=== PATIENT | male | born 1935 | race Caucasian/White ===

== ENCOUNTER 2016-11-28 15:03 | Inpatient (IN) | payer MEDICARE, OTHER ==
[~2016-11-28] VITALS: Ht 180.3 cm; Wt 120.5 kg
[~2016-11-28 15:03] MED LIST: ALBU0.63 IH; ASPI-586 PO; DGX.25T PO; DOCU-34 PO; FURO20TA4 PO; GLIM4TAB PO; HYDR-707 PO; KCL10CCR PO; METF500T4 PO; MICO14CR6 TP; OMEP20CA12 PO; SIMV80TA3 PO; WARF5TAB PO
--- OUTSIDE RECORDS SUMMARY | 2016-11-28 15:07 | XMS REPORT | Summary of Care ---
Author Author Alex Glass M.D. 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 Edema (782.3, R60.9) Status: Active Leg pain (729.5, M79.606) Status: Active Asthma (493.90, J45.909) Status: Active Varicose veins with pain (454.8, I83.819) Status: Active Poor peripheral circulation (443.9, I73.9) Status: Active Varicose veins with swelling (454.8, I83.899) Status: Active Atrial fibrillation (427.31, I48.91) Status: Active Aortic stenosis (424.1, I35.0) Status: Active Benign essential hypertension (401.1, I10) Status: Active Dyspnea on exertion (786.09, R06.09) Status: Active 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 Refills: 0 Start 18-Oct-2015 Active Furosemide 20 MG Oral Tablet TAKE 1 TABLET DAILY. Refills: 0 Start 18-Oct-2015 Active Glimepiride 4 MG Oral Tablet TAKE 1 TABLET DAILY. Refills: 0 Start 18-Oct-2015 Active Omeprazole 40 MG Oral Capsule Delayed Release TAKE 1 CAPSULE DAILY. Refills: 0 Start 18-Oct-2015 Active Warfarin Sodium 4 MG Oral Tablet Refills: 0 Start 18-Oct-2015 Active Aspirin 81 MG TABS TAKE 1 TABLET DAILY. Refills: 0 Start 18-Oct-2015 Active Simvastatin 80 MG Oral Tablet TAKE 1 TABLET DAILY AT BEDTIME. Quantity: 30 Refills: 5 Alex Glass M.D. Start 22-Dec-2015 Active Allergies and Adverse Reactions Name Dates Details No Known Drug Allergies (Allergy) Status: Active Past Medical History Name Dates Details History of Moderate aortic stenosis (424.1, I35.0) Status: Resolved Procedures Procedure Dates Details History of Knee Surgery History of Scapulopexy History of Rotator Cuff Repair Cardiology Precert (within facility) Ordered: 26-Jun-2016 Cardiology Precert (within facility) Ordered: 26-Jun-2016 CP Echo Ordered: 30-Jun-2016 Immunization Name Dates Details Immunizations not documented Family History Name Dates Details Family history of cardiac disorder (V17.49, Z82.49) Status: Active Name Dates Details Family history of cardiac disorder (V17.49, Z82.49) Status: Active Name Dates Details Family history of cardiac disorder (V17.49, Z82.49) Status: Active Family history of cardiomyopathy (V17.49, Z82.49) Status: Active Family history of acute myocardial infarction (V17.3, Z82.49) Status: Active Social History Name Dates Details - Status: Name Dates Details Former smoker Vital Signs Date Test Result Details 13-Jul-2016 10:59 BP Systolic 118 mm[Hg] Status: Comments: Location: ; Position: BP Diastolic 64 mm[Hg] Status: Comments: Location: ; Position: Heart Rate 80 /min Status: Comments: Location: ; Height 71 in Status: Weight 263 lb Status: Body Mass Index Calculated 36.68 kg/m2 Status: Body Surface Area Calculated 2.37 m2 Status: 26-Jun-2016 10:00 BP Systolic 116 mm[Hg] Status: Comments: Location: ; Position: BP Diastolic 64 mm[Hg] Status: Comments: Location: ; Position: Heart Rate 84 /min Status: Comments: Location: ; Height 71 in Status: Weight 272 lb Status: Body Mass Index Calculated 37.94 kg/m2 Status: Body Surface Area Calculated 2.4 m2 Status: Results Date Description Value Details 03-Jul-2016 12:52 CP Echo Y Linked PDF Report Available for Review by Clicking ImageLink Button 13-Jul-2016 09:17 LIPID PROFILE 1184 Comments: Fastin hours CHOLESTEROL 103 mg/dL Range: <200 TRIGLYCERIDES 156 mg/dL Range: 30-200 HDL Cholesterol 30 mg/dL (Below low threshold) Range: >39 NON HDL CHOLESTEROL 73 CARDIAC RSK FACTOR 3.4 units (Below low threshold) Range: 4.4-5.0 LDL - CALCULATED 42 mg/dL Range: 0-130 09:17 LIVER PROFILE 1215 Comments: Fastin hours ALK PHOSPHATASE 85 U/L Range: 46-116 TOTAL BILIRUBIN 0.50 mg/dL Range: 0.20-1.00 DIRECT BILIRUBIN 0.10 mg/dL Range: 0.00-0.20 AST 22 U/L Range: 8-35 ALT 20 U/L Range: 16-63 Comments: Please note new reference ranges. Effective 02/04/2015.----- ALBUMIN 3.1 g/dL (Below low threshold) Range: 3.4-5.0 TOTAL PROTEIN 8.0 g/dL Range: 6.4-8.2 Plan of Care Name Dates Details Planned Observations Planned Goals not documented Instructions Name Dates Details Instructions not documented Encounters Appointment; Alex Glass M.D. Encounter Diagnosis: Problem not documented On 26-Jun-2016 10:00 Appointment; Alex Glass M.D. Encounter Diagnosis: Problem not documented On 22-Mar-2016 10:45 Appointment; Alex Glass M.D. Encounter Diagnosis: Problem not documented On 22-Dec-2015 11:45 Appointment; Alex Glass M.D. Encounter Diagnosis: Problem not documented On 11-Nov-2015 16:15 Appointment; Alex Glass M.D. Encounter Diagnosis: Problem not documented On 28-Oct-2015 16:00
[2016-11-28] MEDS ORDERED: SODIUM CHLORIDE FLUSH 10 ML SYR IV PRN (15:20)
[2016-11-28] MEDS ORDERED: SODIUM CHLORIDE FLUSH 3 ML SYR IV PRN (15:20)
[2016-11-28] MEDS ORDERED: WARF4TAB3 PO (15:37)
[2016-11-28 15:38] LABS: BASOPHILS % (AUTO) 1 % (0-2); EOSINOPHILS # (AUTO) 0.2 10^3uL; EOSINOPHILS % (AUTO) 2 % (0-4); LYMPHOCYTES # (AUTO) 1.4 X10^3; MEAN CORPUSCULAR HGB CONC 32.8 g/dL (31.0-37.0); MEAN CORPUSCULAR VOLUME 82 FL (80-100); MEAN PLATELET VOLUME 9.3 FL (6.0-9.5); MONOCYTES # (AUTO) 0.6 X10^3; MONOCYTES % (AUTO) 7 % (3-11); NEUTROPHILS # (AUTO) 6.2 X10^3; NEUTROPHILS % (AUTO) 74 % (51-67); PLATELET COUNT 155 10^3uL (150-450); WHITE BLOOD COUNT 8.41 10^3uL (4.0-11.0)
[2016-11-28 15:48] LABS: ALBUMIN 4.3 g/dL (3.4-5.0); ANION GAP 17.8 MEQ/L (3-15); CALCULATED IONIZED CALCIUM 3.7 mg/dL (3.8-4.6); TOTAL PROTEIN 8.4 g/dL (6.4-8.5)
[2016-11-28 16:09] LABS: MEAN CORPUSCULAR HEMOGLOBIN 26.8 PG (26.0-34.0)
--- NOTE | 2016-11-28 16:15 | Diagnostic Imaging Report ---
PROCEDURE: CT head without contrast. TECHNIQUE: Multiple contiguous axial images were obtained through the brain without the use of intravenous contrast. INDICATION: Left upper extremity weakness and disorientation. FINDINGS: Ventricles and sulci are within normal limits for patient's age. No hemorrhage is identified. There is no evidence of acute infarct. There is no abnormal mass effect or shift of midline structures. Calvarium is intact and the visualized paranasal sinuses are clear. IMPRESSION: No CT evidence of acute intracranial abnormality. Dictated by: Dictated on workstation # [id number]
--- NOTE | 2016-11-28 16:28 | NUR ---
rounds made, pt denies needs.
--- NOTE | 2016-11-28 18:00 | NUR ---
Patient walked in room and hallway with assist x2 and wheelchair following. Patient is complaining of lightheadedness and vertigo. Unable to walk back to room, Wheelchair utilized.
--- NOTE | 2016-11-28 18:51 | NUR ---
Report given to Keerthi MURRAY
[2016-11-28] MEDS ORDERED: CALCIUM CARBONATE CHEWABLE 300 MG (TUMS) TABLET PO PRN (20:05)
[2016-11-28] MEDS ORDERED: ONDANSETRON 4 MG (ZOFRAN) ORAL DISSOLVE TAB PO PRN (20:05)
[2016-11-28] MEDS ORDERED: MAG HYDROX/AL HYDROX/SIMETH 200-200-20/5 ML (MAG-AL PLUS) 30 ML UDC PO PRN (20:05)
[2016-11-28] MEDS ORDERED: POLYETHYLENE GLYCOL 17 GM (MIRALAX) PACKET PO PRN (20:05)
[2016-11-28] MEDS ORDERED: ACETAMINOPHEN 325 MG TAB (TYLENOL) PO PRN (20:05)
[2016-11-28] MEDS ORDERED: PROMETHAZINE HCL INJ 12.5 MG in SODIUM CHLORIDE 25 ML IV PRN (20:05)
[2016-11-28] MEDS ORDERED: MAGNESIUM HYDROXIDE 80MG/ML (MILK OF MAGNESIA) 30 ML UDC PO PRN (20:05)
[2016-11-28] MEDS ORDERED: DOCUSATE SODIUM 100 MG (COLACE) CAP PO PRN (20:05)
--- NOTE | 2016-11-28 20:40 | NUR ---
Patient admitted to room 302 at this time. Alert and Oriented, is having some double vision and has some difficulties finding water cup on tray in front of him. No reports of pain or dyspnea. See Admission Assessment part 1 & 2. Will continue to monitor.
[2016-11-28 20:41] LABS: MAGNESIUM* 2.2 mg/dL (1.6-2.3)
[2016-11-28 21:09] VITALS: BP 97/64
[2016-11-28] MEDS ORDERED: DEXTROSE 50% 25 GM/50 ML SYRINGE IV PRN (21:25)
[2016-11-28] MEDS ORDERED: DEXTROSE ORAL GEL (GLUTOSE 40%) 15 GM TUBE PO PRN (21:25)
[2016-11-28] MEDS ORDERED: GLUCAGON EMERGENCY 1 MG/KIT IM PRN (21:25)
--- NOTE | 2016-11-28 21:40 | History and Physical (E) ---
History & Physical PCP: Олег Rivera MD CC: Altered mental status. HPI Sachin Vasquez is a 81 year old male admitted form ED 11/28 where he presented with report of sudden change in vision after he got back into his truck. He could not see were things were. In ED, he complained of light-headedness and vertigo. Afebrile with HR 86, RR 22, BP 114/78. SpO2 92% RA. CBC fairly unremarkable. INR 2.1. Chemistry suggestive of mild dehydration. Digoxin 1.20. Urine wasn't checked. CT head was negative for acute changes. He was given no therapies in ED. He was then admitted for observation. On arrival to unit, awake, alert, interactive, mildly disoriented and he as a bit of trouble relating history clearly. Says he is here because of "feeling like I am walking on an air mattress." Has trouble with balance and with foot positioning at times. Says in ER today he had double vision. He has trouble recalling whether this was lateral or vertical. Since arrival to hospital, this has improved for the most part. Neuro exam is as noted below. Speech is not slurred but he has a very mild bit of word-finding trouble. Symptom onset was today when leaving the post office this [place]. 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 One of the employees there took him home. He then called a friend who brought him to hospital. No nausea or vomiting. No vertigo but acknowledges he has trouble keeping his balance over the las several weeks. Has some right neck pain he attributes to pulled muscle. No fever or chills. Denies new respiratory complaints. Denies chest pain or palpitations. PMH * Diabetes mellitus type 2 * atrial fibrillation * history of DVT * Charcot joints in ankles * diabetic foot ulcers * gout * HTN * No history of heart attack. * No history of stroke. PSH * Cholecystectomy * knee replacement * rotator cuff tear repair * shoulder replacement ALLERGIES: Please see list at end of report. HOME MEDICATIONS: Please see list at end of report. FH Brother with CHF. SH Lives independently. Does not have anyone he is close with. 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 Smokes cigars. Occasional alcohol. No children. ROS CONSTITUTION: Denies fever or chills. HEENT: Per HPI, exam. CV: No chest pain, palpitations. PULM: No cough, shortness of breath, difficulty breathing. GI: No upset stomach, nausea, vomiting, constipation, or diarrhea. No blood in stool. : No dysuria. No blood in urine. MS: Per HPI, exam. NEURO: Per HPI, exam. INTEG: Per HPI, exam. ENDO: No heat or cold intolerance. No polydipsia or polyuria. HEME/LYMPH: No easy bruising or bleeding. No swollen glands. PSYCH: No change in mood or behavior. OBJECTIVE Vital Signs Date Time Temp Pulse Resp B/P Pulse Ox O2 Delivery O2 Flow Rate FiO2 11/28/16 17:39 80 82 94 11/28/16 15:18 97.2 22 114/78 92 Room Air GEN: Awake, alert, oriented, NAD HEENT: EOMI, clear sclerae, pupils equal and reactive. Visual field deficit as noted in neuro exam. Mild facial plethora. Rosacea of nose. CV: RRR S1 S2 normal with III/ systolic murmur at RSB. LUNGS: CTA B with mildly diminished bases. ABD: Soft, obese. NT/ND with normal bowel sounds. EXTR: 3+ BLE edema with chronic venous stasis changes. INTEG: Venous stasis dermatitis BLE. BLE edema. MS: Charcot ankles/feet bilaterally. NEURO: Has trouble tracking vision to left visual field but VOR is intact bilaterally. Apparently complete left visual field deficit. Cranial nerves otherwise intact. Hands mildly tremulous bilaterally. Event Technician strength difficult to check on right due to IV site but otherwise intact bilaterally. Hip flexion intact bilaterally. Gait not assessed. NIH stroke scale score 3 for visual field cut, mild sensory deficit. Laboratory Results-14 Days 11/28/16 15:10: Alanine Aminotransferase (ALT/SGPT) 28L, Albumin 4.3, Albumin/Globulin Ratio 1.048L, Alkaline Phosphatase 113, Anion Gap 17.8H, Aspartate Amino Transf (AST/ SGOT) 40H, BUN/Creatinine Ratio 18, Basophils # (Auto) 0.0, Basophils (%) (Auto ) 1, Blood Urea Nitrogen 23H, Calcium Level 9.3, Calcium/Ionized Calcium Ratio 3.7L, Calculated Osmolality 282, Carbon Dioxide Level 27, Chloride Level 103, Creatinine 1.27, Eosinophils # (Auto) 0.2, Eosinophils (%) (Auto) 2, Estimat Glomerular Filtration Rate 66.2, Estimated GFR (Non- 54.7, Glucose Level 105, Hematocrit 51.50H, Hemoglobin 16.9, Lymphocytes # (Auto) 1.4 , Lymphocytes (%) (Auto) 16L, Mean Corpuscular Hemoglobin 26.8, Mean Corpuscular Hemoglobin Concent 32.8, Mean Corpuscular Volume 82, Mean Platelet Volume 9.3, Monocytes # (Auto) 0.6, Monocytes (%) (Auto) 7, Neutrophils # (Auto ) 6.2, Neutrophils (%) (Auto) 74H, Platelet Count 155, Potassium Level 4.7, Red Blood Count 6.30H, Red Cell Distribution Width 17.4H, Sodium Level 144, Total Bilirubin 0.8, Total Protein 8.4, White Blood Count 8.41 11/28/16 18:37: Digoxin Level 1.20, Prothromb Time International Ratio 2.1H, Prothrombin Time 23.4H MICRO: None IMAGING 11/28/16 CT HEAD WO PROCEDURE: CT head without contrast. TECHNIQUE: Multiple contiguous axial images were obtained through the brain without the use of intravenous contrast. INDICATION: Left upper extremity weakness and disorientation. FINDINGS: Ventricles and sulci are within normal limits for patient's age. No hemorrhage is identified. There is no evidence of acute infarct. There is no abnormal mass effect or shift of midline structures. Calvarium is intact and the visualized paranasal sinuses are clear. IMPRESSION: No CT evidence of acute intracranial abnormality. REFERENCE 06/24/2015 ECHO: Summary: 1. Mild LVH. 2. LVEF 55-60%. 3. Impaired relaxation pattern of LV diastolic filling. 4. Normal right ventricular size, wall thickness, and systolic function. 5. No pericardial effusion. 6. Mild to moderate aortic stenosis. 7. Calculated aortic valve area of 1.55 cm2 with mean gradient 20 mmHg. 8. Mild tricuspid valve regurgitation. ASSESSMENT Sachin Vasquez is a 81 year old male admitted from ED 11/28 where he presented from home with new onset diplopia and left visual field deficit, onset in AM . He likely had stroke. Outside range for TPA and note he is already on warfarin for atrial fibrillation. He has several chronic problems including charcot joints, atrial fibrillation, diabetes mellitus type II and obesity. PLAN * Stroke, Left Hemianopsia: CT head negative for acute changes. MRI and carotid venous duplex pending. Already on anticoagulation and aspirin at home. PT/OT. Would benefit from ophthalmology referral pending workup. * Disequilibrium: Likely due to stroke. PT/OT eval and treat. * Deconditioning: PT/OT eval and treat. * Dehydration: Mild. IVF. Daily weight, I&O. * F/E/N: Diabetic diet. IVF. Peripheral IV. * Prophylaxis: Warfarin * Code Status: Full * Dispo: Inpatient. Expect 3 day stay and will need skilled care, most likely. CHRONIC ISSUES * BLE edema: JOEY yee. * Atrial fibrillation: Warfarin, digoxin. * Diabetes Mellitus Type II: A1C 7.1 09/2016. Hold oral agents. Sliding scale. * GERD: Pantoprazole (sub for omeprazole) * Charcot joints: PT. * HLD: Simvastatin * Constipation: Bowel regimen * Tobacco abuse: Nicotine patch. 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 Allergies/Home Medications Allergies: Coded Allergies: No Known Allergies (Verified Allergy, Unknown, 01/02/16) Reported Home Medications Scheduled Aspirin (Aspir 81) 81 MG PO DAILY (Reported) Digoxin (Lanoxin) 0.25 MG PO DAILY (Reported) Docusate Sodium (Colace) 100 MG PO DAILY (Reported) Furosemide (Furosemide) 20 MG PO DAILY (Reported) Glimepiride (Glimepiride) 4 MG PO DAILY Omeprazole (Omeprazole) 40 MG PO DAILY (Reported) Simvastatin (Simvastatin) 80 MG PO DAILY (Reported) Warfarin (Warfarin) 4 MG PO DAILY (Reported) Discontinued Medications Warfarin Sodium (Coumadin) 5 MG PO DAILY@1700 (Reported) Discontinued Reason: Dose changed Copies to: End of Report . XU EAGLE MD Nov 28, 2016 20:09
[2016-11-29 00:16] VITALS: BP 99/63
[2016-11-29 03:43] LABS: BILIRUBIN,URINE Negative (Negative); COLOR,URINE Yellow; GLUCOSE, URINE (UA) Negative (Negative); LEUKOCYTE ESTERASE ,URINE 1+ (Negative); PH,URINE 5.5 (5.0 - 8.0); UROBILINOGEN,URINE 0.2 mg/dL (0.2-1.0)
--- NOTE | 2016-11-29 04:34 | NUR ---
Patient up to commode at this time to attempt to have bowel movement. States that he's not seeing double right now, and that he felt more stable when he got up to commode. No needs at this time. Will continue to monitor.
[2016-11-29] MEDS ORDERED: HALOPERIDOL 5 MG/ML (HALDOL) 1 ML AMP IM ONE (05:15)
[2016-11-29 05:38] LABS: CLARITY,URINE Slightly Cloudy
[2016-11-29 05:40] LABS: URINE CENTRIFUGED VOLUME 12 mL
--- NOTE | 2016-11-29 06:21 | NUR ---
Patient rests in bed throughout night. IV running without difficulties in right hand. Reports no double vision at this time. No needs at this time.
[2016-11-29 06:25] LABS: BASOPHILS % (AUTO) 1 % (0-2); EOSINOPHILS # (AUTO) 0.2 10^3uL; EOSINOPHILS % (AUTO) 3 % (0-4); LYMPHOCYTES # (AUTO) 1.1 X10^3; MEAN CORPUSCULAR HGB CONC 32.5 g/dL (31.0-37.0); MEAN CORPUSCULAR VOLUME 83 FL (80-100); MEAN PLATELET VOLUME 9.5 FL (6.0-9.5); MONOCYTES # (AUTO) 0.5 X10^3; MONOCYTES % (AUTO) 7 % (3-11); NEUTROPHILS # (AUTO) 5.2 X10^3; NEUTROPHILS % (AUTO) 74 % (51-67); PLATELET COUNT 134 10^3uL (150-450); WHITE BLOOD COUNT 6.98 10^3uL (4.0-11.0)
[2016-11-29 06:45] LABS: ALBUMIN 3.3 g/dL (3.4-5.0); ANION GAP 12.3 MEQ/L (3-15); PHOSPHORUS 3.5 mg/dL (2.4-4.9)
[2016-11-29] MEDS: INSULIN LISPRO 1 UNIT/0.01 ML (HUMALOG) DOSE SC SCH ×4 (06:56→21:00)
[2016-11-29 07:01] LABS: RBC,URINE None Seen /HPF
--- NOTE | 2016-11-29 07:35 | NUR ---
Patient awake in bed upon shift assessment. Alert and oriented X3. Denies pain, dizziness, double vision, or other distress. Reports his vision is "back to normal". HR RRR. Lung sounds CTAB. IVF infusing without difficulty. Updated on plan of care for shift. Call light in reach.
[2016-11-29 07:45] VITALS: BP 97/64
[2016-11-29] MEDS: WARFARIN MONITORING XX SCH (08:10)
[2016-11-29] MEDS: PANTOPRAZOLE 40 MG (PROTONIX) TAB PO SCH (08:12)
[2016-11-29] MEDS: DIGOXIN 0.25 MG (LANOXIN) TAB PO SCH (08:12)
[2016-11-29] MEDS: NICOTINE 21 MG (NICODERM) PATCH TD SCH ×2 (08:12→08:14)
[2016-11-29] MEDS ORDERED: GLMP4T PO (08:40)
[2016-11-29] MEDS ORDERED: METO-270 PO (08:40)
[2016-11-29] MEDS ORDERED: LOVA20TA2 PO (08:40)
[2016-11-29 08:45] VITALS: BP 97/64
--- NOTE | 2016-11-29 09:50 | Progress Note-A/P (E) ---
Progress Note Subjective: Patient would like to be up walking. He feels his vision is improving, however he is struggling to read the clock in the room. He is requesting his home stool softener, cream for his thighs that are chronically itching. Discussed care plan. Questions answered. Objective: Current Medications Acetaminophen 650 mg Q6H PRN PO Calcium Carbonate 300 mg Q8H PRN PO Al Hydrox/Mg Hydrox/Simethicone 30 ml Q6H PRN PO Ondansetron 4 mg Q6HR PRN PO Promethazine Q6H PRN IV Magnesium Hydroxide 30 ml DAILY PRN PO Polyethylene Glycol 17 gm DAILY PRN PO Docusate 100 mg BID PRN PO Nicotine 21 mg DAILY TD Digoxin 0.25 mg DAILY PO Warfarin 4 mg DAILY@1700 PO Pantoprazole 40 mg DAILY PO Simvastatin 40 mg HS PO Dextrose 15 gm Q15M PRN PO Dextrose PRN IV Glucagon 1 mg PRN IM Insulin Human Lispro QIDACHS SC Vital Signs Date Time Temp Pulse Resp B/P Pulse Ox O2 Delivery O2 Flow Rate FiO2 11/29/16 08:45 96.9 64 18 92 Room air 11/29/16 07:45 97/64 I & O Past 24 hrs 11/29/16 07:00 Intake Total 1500 ml Output Total 800 ml Balance 700 ml Intake Oral 1500 ml Output Urine Total 800 ml # Bowel Movements 0 Physical Exam General--Awake and alert. No distress. HEENT--Normocephalic. MMM in oral cavity. Lungs--Clear to auscultation bilaterally. Nonlabored respirations. Heart--RRR. II/ CASSANDRA heard over left sternal border. Abdomen--Normal bowel sounds. Soft. Nondistended. Nontender. Extremities--No edema. Past 24 hour Lab Results 11/28/16 15:10 11/29/16 05:20 Laboratory Results Past 24 Hrs 11/28/16 15:10: Alanine Aminotransferase (ALT/SGPT) 28, Albumin 4.3, Albumin/Globulin Ratio 1.048, Alkaline Phosphatase 113, Anion Gap 17.8, Aspartate Amino Transf (AST/ SGOT) 40, BUN/Creatinine Ratio 18, Basophils # (Auto) 0.0, Basophils (%) (Auto) 1, Blood Urea Nitrogen 23, C-Reactive Protein 1.40, Calcium Level 9.3, Calcium/ Ionized Calcium Ratio 3.7, Calculated Osmolality 282, Carbon Dioxide Level 27, Chloride Level 103, Creatinine 1.27, Eosinophils # (Auto) 0.2, Eosinophils (%) ( Auto) 2, Estimat Glomerular Filtration Rate 66.2, Estimated GFR (Non- 54.7, Glucose Level 105, Hematocrit 51.50, Hemoglobin 16.9, Lymphocytes # (Auto) 1.4, Lymphocytes (%) (Auto) 16, Magnesium Level 2.2, Mean Corpuscular Hemoglobin 26.8, Mean Corpuscular Hemoglobin Concent 32.8, Mean Corpuscular Volume 82, Mean Platelet Volume 9.3, Monocytes # (Auto) 0.6, Monocytes (%) (Auto) 7, Neutrophils # (Auto) 6.2, Neutrophils (%) (Auto) 74, Platelet Count 155, Potassium Level 4.7, Red Blood Count 6.30, Red Cell Distribution Width 17.4, Sodium Level 144, Thyroid Stimulating Hormone (TSH) 2.52, Total Bilirubin 0.8, Total Protein 8.4, Troponin I 0.035, White Blood Count 8.41 11/28/16 18:37: Digoxin Level 1.20, Prothromb Time International Ratio 2.1, Prothrombin Time 23.4 11/29/16 02:40: Urine Bacteria 1+, Urine Bilirubin Negative, Urine Clarity Slightly cloudy, Urine Collection Type Random voided, Urine Color Yellow, Urine Glucose (UA) Negative, Urine Ketones Negative, Urine Leukocyte Esterase 1+, Urine Nitrite Positive, Urine Protein Negative, Urine RBC None seen, Urine RBC (Auto) Trace- intact, Urine Specific [place] 1.025, Urine Squamous Epithelial Cells None, Urine Urobilinogen 0.2, Urine WBC 20-30, Urine pH 5.5, Volume Urine Centrifuged 12 ml 11/29/16 05:20: Albumin 3.3, Anion Gap 12.3, Basophils # (Auto) 0.0, Basophils (%) (Auto) 1, Blood Urea Nitrogen 21, Calcium Level 8.5, Carbon Dioxide Level 28, Chloride Level 105, Creatinine 1.13, Eosinophils # (Auto) 0.2, Eosinophils (%) (Auto) 3, Estimat Glomerular Filtration Rate 75.7, Estimated GFR (Non- 62.6, Glucose Level 137, Hematocrit 45.80, Hemoglobin 14.9, Lymphocytes # (Auto ) 1.1, Lymphocytes (%) (Auto) 16, Mean Corpuscular Hemoglobin 27.0, Mean Corpuscular Hemoglobin Concent 32.5, Mean Corpuscular Volume 83, Mean Platelet Volume 9.5, Monocytes # (Auto) 0.5, Monocytes (%) (Auto) 7, Neutrophils # (Auto ) 5.2, Neutrophils (%) (Auto) 74, Platelet Count 134, Potassium Level 4.2, Red Blood Count 5.52, Red Cell Distribution Width 16.5, Sodium Level 141, White Blood Count 6.98, Phosphorus Level 3.5 Imaging Results 11.28.16 CT Head IMPRESSION: No CT evidence of acute intracranial abnormality. 11.29.16 Carotid u/s IMPRESSION: Left greater than right mixed carotid plaques do not form hemodynamically significant degrees of stenosis. There is antegrade directional left vertebral flow; however, the right vertebral shows no identifiable intraluminal flow, either too slow to be detected or occluded. Assessment/Plan Stroke, Left Hemianopsia CT head negative for acute changes. MRI pending. Carotid u/s report above. Already on anticoagulation and aspirin at home. PT/OT/ST. Would benefit from ophthalmology referral pending workup. Disequilibrium Likely due to stroke. PT/OT eval and treat. Deconditioning PT/OT eval and treat. Dehydration Mild. IVF. Daily weight, I&O. BLE edema JOEY hose. Atrial fibrillation Warfarin and digoxin per home dose. INR 2.1. Diabetes Mellitus Type II A1C 7.1 09/2016. Holding oral agents. Sliding scale. GERD Pantoprazole (sub for omeprazole), creatinine normal. Charcot joints PT. HLD Continue home simvastatin. Constipation Continue home bowel regimen. Tobacco abuse Nicotine patch. 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 FEN Diabetic diet. IVF. Peripheral IV. DVT Prophylaxis Warfarin, with a therapeutic INR. Code Status Full Dispo Inpatient. MRI tomorrow. SUSANNAH LIN MD Nov 29, 2016 09:50
--- NOTE | 2016-11-29 10:39 | OT Therapy Evaluation (E) ---
POC Plan of Care Problems Identified: Activity Tolerance, ADLs, Balance, Body Awareness, Lt UE Strength, Rt UE Strength, Safety Awareness, Vision Impairment Plan: Evaluation-OT, ADL/Self Care Management, Therapy Exercises, Therapy Activities, Pt/Family/Staff Education Frequency of OT: Five times weekly Duration of OT: Other (5 days ) Therapy to Include: ADL training, Balance with ADLs, Neuro re-education, Pt/ family education, Therapeutic activities, UE coord. training, UE strengthing Discharge Recommendations: TCU/Skilled NH Pt would benefit from skilled occupational therapy services to improve independence with self care tasks for return to prior level of function. Additionally to provide visual retraining and strategies for left visual field deficit. Recommended Equipment at DC: Rails on toilet Pt. Aware of Dx and Prognosis: Yes Pt. Aware of Risk & Benefit: Yes Goals: Discussed with patient Short Term Goals STG Time Frame: 3 Days Will Dress Upper Extremity: With Setup/SBA Will Dress Lower Extremity: With Setup/SBA Will do Toileting: With Setup/SBA Will Perform Funct Transfer: With Setup/SBA STG #1 Pt will participate in 15 min of ther ex with 4 or less rest breaks. STG #2 Pt will demonstrate ability to complete grooming task in standing at sink and locate all items by self with SBA. STG #3 Pt will demonstrate ability to complete wide head turns during self care activities with minimal prompting to increase safety during ADLs. Half-Way Goals LTG Time Frame: 5 Days Will Dress Upper Extremity: Independently Will Dress Lower Extremity: Independently Will Bathe Self: With Setup/SBA LTG # 1 Pt will demonstrate ability to visually scan environment and locate 8/10 items provided by therapist with independence. Inital Evaluation/General Service Date/Time 11/29/16, 10:25 Primary Diagnosis: (1) Vertigo ICD Code: R42 Treatment Diagnosis: (1) Weakness ICD Code: R53.1 (2) Vision loss ICD Code: H54.7 Onset Date: 11/28/16 Start of Care Date: Nov 29, 2016 Precaution/Isolation: Standard Precautions Fall Level: High Risk 51 or greater Resuscitation Status: Full Code Reason for Referral: Evaluation and Treat History Comment PMH DM II, Atrial fibrillation, history of DVT, diabetes, foot ulcers, gout Pain Level: 0 Pain Locattion/Comments Pt reports no pain, but has an itch between legs due to a rash. Oxygen Needed: Room air Rehabilitation Potential: Good Potential Based On Patient's willingness to participate in therapies. Living Status Prior to Admit: Alone (Lives in a one level home ) Pt reports no difficulty self care tasks. Pt reports he does not clean, but does cooking on stove and microwave. 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 Entry Into Home: [place] with Railing Steps Into Home: 1 Shower and Tub Type: Walk in with curtain Assist Devices: Tub Bench Toilet Type: Raised Comment Has both a FWW and a SPC and only uses when he needs them. Has been "furniture cruising" lately. No falls within the home. Lost balance outside of the home. 2 falls outside the home. Current Function Assessment Mental Status Patient Orientation: Person Mental Status: Alert Cognition Attention: Impaired Memory: Impaired Safety/Judgement: Impaired Visual/Perceptual Skills Visual Precep Skills Training: Depth preception, L neglect, Limited FOV, Scanning cues Glassess: Yes (Lined bifocals) Hearing: Impaired (Pt hard of hearing) Comment Upon assessment pt demonstrates a left visual field cut. Pt unable to see items on left side, but is aware he is unable to see. When holding up 3 fingers, pt reports only seeing two. Limited peripheral vision on left during useful field of view assessment. Pt demonstrates good oculomotor control during H test and ocular pursuits. Demonstrates difficulty with depth perception on left side. Hand Dominance Hand Dominance: Right ROM/Strength Range of Motion : ROM: WNL Strength Comment BUE 4-/5 Neurological Coordination: Moderately impaired Balance: Sits w/o support Endurance Activity Endurance: Fair Bed Mobility/Transfers Sit to Stand: Minimum assist Chair Transfer: Minimum assist Dressing Dressing: Minimum assist Clothing Retrieval: Minimum assist, Verbal cues Bathing Shower/Bench Transfer Ability: Minimum assist, Verbal cues Toileting Toilet Hygiene: CGA Toilet Transfer Ability: Minimum assist Additional Assessment/Comments Pt demonstrates decreased strength, decreased safety awareness, decreased independence with self care tasks including bathing, dressing toileting and grooming and limited vision. Pt presents as a moderate complexity due to the performance deficits listed above resulting in participation restrictions and requiring minimal to moderate physical and verbal tasks during the evaluation for safety awareness secondary to vision concerns. CPT/G Codes Time In: 10:22 Time Out: 11:01 Total Minutes: 39 (25 eval, 14 ADL) Codes/Minutes: 81136 ADL EA (Sitting at EOB, pt participated in lower body dressing of donning and doffing socks. Pt able to bring opposite leg to knee and don socks. With increased time, pt able to complete donning of bilateral socks. Completed sit to stand transfer with minimal assistance. Safety cueing to slow down with FWW and keep walker close to body for safety. In bathroom, pt able to manage underwear and sit on toilet with CGA. Completed transfer with minimal assistance and able to manage underwear with CGA. In sitting, educated pt on use of wide head turns to compensate for visual field loss on left side. ) YOUSUF UMAÑA OT Nov 29, 2016 10:39
[2016-11-29] MEDS: HYDROCORTISONE 1% TOP SCH ×2 (12:51→17:08)
[2016-11-29] MEDS: DOCUSATE SODIUM 100 MG (COLACE) CAP PO SCH (12:51)
--- NOTE | 2016-11-29 12:56 | Diagnostic Imaging Report ---
PROCEDURE: US Carotid Duplex Bilateral. TECHNIQUE: Multiple real-time grayscale images were obtained over the carotid arteries in various projections bilaterally. Additional duplex Doppler and color Doppler images were also obtained. INDICATION: TIAs. FINDINGS: The bilateral common and internal carotid arterial peak systolic velocities and ICA/CCA percent ratios are normal. Carotid color Doppler blood flow was laminar. No turbulence is identified. There is left greater than right carotid bulb and bifurcation mixed soft and hard plaque which does not form hemodynamically significant degrees of stenosis. The left vertebral artery shows normal antegrade directional flow; however, the right vertebral shows no appreciable intraluminal color Doppler flow. IMPRESSION: Left greater than right mixed carotid plaques do not form hemodynamically significant degrees of stenosis. There is antegrade directional left vertebral flow; however, the right vertebral shows no identifiable intraluminal flow, either too slow to be detected or occluded. Dictated by: Dictated on workstation # [id number]
[2016-11-29 14:16] VITALS: BP 97/64
--- NOTE | 2016-11-29 14:59 | Physical Therapy Evaluation(E) ---
Plan of Care STG: Plan-Treatment Functional: Trans. Safe w/ AD STG Time Frame: 2 Days LTG Time Frame: 5 Days Goals Discussed/Agreed: Yes Plan: Endurance, Gait & Transfer Training, Neuro Re-Education, Progressive Ambulation, Transfer Training, Therapy Excercise Discharge Recommendations: Home Independently (Possible home health services and recommendation for patient to use AD for ambulation upon return honme. ) Aware of Dx and Prognosis: Yes Aware of Risk & Benefit: Yes To be Seen: Daily Sunday-Sunday Initial Evaluation Service Date/Time 11/29/16, 14:56 Primary Diagnosis: (1) Vertigo ICD Code: R42 (2) Altered mental status ICD Code: R41.82 (3) Vision loss ICD Code: H54.7 Treatment Diagnosis: (1) Vertigo ICD Code: R42 (2) Altered mental status ICD Code: R41.82 Onset Date: 11/28/2016 Start of Care Date: Nov 29, 2016 Resuscitation Status: Full Code Precaution/Isolation: Standard Precautions Fall Level: High Risk 51 or greater Initial Assessment Reason for Rehab: Increase Mobility, Increase Strength, Increase Balance, Increase Transfers Medical History: Other (Charcot joints in feet, Afib, hx of DVT, HTN, gout, right RCR, shoulder replacement, knee replacement. ) Prior Level of Function The patient lives alone independently and was still driving. He notes ambulating without AD. Patient did have home health services at some point to assist him with bathing. Rehabilitation Potential: Good Rehab Potential Based on Patient's independent prior level of function. Assistive Device: FWW Distance Walked in Feet 100 feet with FWW increased lateral trunk sway Gait Description: Wide Based Gait, Uneven Weight Shift ROM/Strength Hip Mobility: Right Hip Strength: 4 Left Hip Strength: 4 Knee Flexion Mobility: Right Knee Flexion Strength: 4 Left Knee Flexion Strength: 4 Knee Extension Mobility: Right Knee Extension Strength: 4 Left Knee Extension Strength: 4 Ankle Mobility: Right Ankle Strength: 2- Left Ankle Strength: 2- Assessment/Goals Initial Transfer Assessment Sit-Supine: Supervision or setup Sitting Edge of Bed: Contact Guard Assist Supine-Sit: Supervision or setup Sit-Stand from Bed: Minimal Assistance Stand-Sit: Contact Guard Assist Ambulation: Contact Guard Assist Distance Walked in Feet 100 feet with FWW fatigued. Mild imbalance in bathroom secondary to decreased space to move. Comment Patient unsteady when standing without UE support. Peripheral vision 80% impaired on left side in comparison to right. Transfer Short Term Goals Rolling: Modified [place] Sit-Supine: Modified [place] Sitting Edge of Bed: Modified [place] Supine-Sit: Modified [place] Sit-Stand from bed: Supervision or setup Stand-Sit: Supervision or setup Ambulation: Contact Guard Assist Distance to Walk in Feet 150 feet x 2 with FWW. Transfer Appliance Counselor Goals Rolling: Modified [place] Sit-Supine: Modified [place] Sitting Edge of Bed: Modified [place] Supine-Sit: Modified [place] Sit-Stand from bed: Modified [place] Stand-Sit: Modified [place] Distance to Walk in Feet 25 feet without FWW, 300 feet with FWW. Treatments Ambulation Toilet transfer with min assistance, upon standing, patient has increased trunk sway but denied any dizziness/lightheadendness. Unable to see door frame on left side secondary to visual impairment, but was able to maintain straight walking path. Coding Time In: 1404 Time Out: 1434 Total Minutes: 30 Code & Unit: 18964 Eval< 30 min, 72912 Ther Activity RADHA HACKETT PT Nov 29, 2016 14:59
[2016-11-29 15:44] VITALS: BP 92/72
[2016-11-29] MEDS: warFARin 4 MG (COUMADIN) TAB PO SCH (17:07)
--- NOTE | 2016-11-29 17:20 | OT Daily Note Inpatient (E) ---
OT Daily Treatment Service Date/Time 11/29/16, 17:07 Primary Diagnosis: (1) Vertigo ICD Code: R42 (2) Altered mental status ICD Code: R41.82 (3) Vision loss ICD Code: H54.7 Treatment Diagnosis: Onset Date: 11/28/16 Start of Care Date: Nov 29, 2016 Precaution/Isolation: Standard Precautions Fall Level: High Risk 51 or greater Resuscitation Status: Full Code I just cant see my finger when its is off to the left Pain Level: 0 Oxygen Needed: Room air Current Function Assessment Mental Status Mental Status: Alert Cognition Memory: Impaired Safety/Judgement: Impaired Visual/Perceptual Skills Visual Precep Skills Training: L neglect, Scanning cues Glassess: Yes (Lined bifocals) Comment Pt engaged in ther activity of making vertical lines through horizontal lines placed on the left side of the body. Pt missed 12 lines in the lower left quadrat. Following number maze took 4:17 minutes with mod v/c for scanning. Matching pattern activity with matching objects placed on the left side of body. Pt only need 30% cueing. Functional ambulation 300 [address] with hallway with FWW CGA with patient scanning for objects on the far left required Max v/c Bed Mobility/Transfers Bed Mobility: SBA Supine from Sit: SBA Sit to Stand: CGA Chair Transfer: CGA Sitting Balance: WFL Toileting Toilet Hygiene: CGA Clothing Tariq-Pants Down : Clothing Management-Pants Down: SBA Clothing Tariq-Pants Up : Clothing Management-Pants Up: SBA Toilet Transfer Ability: CGA Education/Assessment Barriers to Learning: Visual impairment Treatment Tolerance: Joseph trmnt w/o complaints Rehabilitation Potential: Good pt experiencing left neglect but will turn head on cue to find objects. POC Plan of Care Problems Identified: Safety Awareness, Vision Impairment Short Term Goals Will do Toileting: CGA Will Perform Funct Transfer: CGA CPT/G Codes Time In: 1508 Time Out: 1551 Total Minutes: 39 Codes/Minutes: 21446 Therp Activity (23), 67384 ADL EA (16) Agueda Minaya Nov 29, 2016 17:20
--- NOTE | 2016-11-29 18:17 | NUR ---
Patient reports some peripheral vision deficit on left side this afternoon. OT works with patient on this. Steady gate noted throughout day shift. Denies pain or distress. IVF SL after bag late AM. Call light in reach.
[2016-11-29] MEDS: SIMvastatin 40 MG (ZOCOR) TAB PO SCH (20:22)
[2016-11-29 23:41] VITALS: BP 111/66
[2016-11-30 00:15] VITALS: BP 111/66
--- NOTE | 2016-11-30 06:12 | NUR ---
Pt rested well this shift. Skin warm, dry, intact. Resprs nonlabored, even on RA. Pt continues to endorse L sided peripheral vision loss. Pt uses urinal independently in room, will call for assistance. SL intact. Call light within reach. Denies needs.
[2016-11-30 06:39] LABS: ALBUMIN 3.4 g/dL (3.4-5.0); ANION GAP 12.8 MEQ/L (3-15); MAGNESIUM* 2.2 mg/dL (1.6-2.3); PHOSPHORUS 3.4 mg/dL (2.4-4.9)
[2016-11-30 06:45] LABS: BASOPHILS % (AUTO) 0 % (0-2); EOSINOPHILS # (AUTO) 0.2 10^3uL; EOSINOPHILS % (AUTO) 3 % (0-4); LYMPHOCYTES # (AUTO) 1.5 X10^3; MEAN CORPUSCULAR HGB CONC 31.8 g/dL (31.0-37.0); MEAN CORPUSCULAR VOLUME 84 FL (80-100); MEAN PLATELET VOLUME 9.8 FL (6.0-9.5); MONOCYTES # (AUTO) 0.5 X10^3; MONOCYTES % (AUTO) 7 % (3-11); NEUTROPHILS % (AUTO) 70 % (51-67); PLATELET COUNT 130 10^3uL (150-450)
[2016-11-30 07:12] LABS: MEAN CORPUSCULAR HEMOGLOBIN 26.5 PG (26.0-34.0)
[2016-11-30] MEDS: INSULIN LISPRO 1 UNIT/0.01 ML (HUMALOG) DOSE SC SCH ×4 (07:13→21:11)
[2016-11-30 08:34] VITALS: BP 109/79
[2016-11-30] MEDS: NICOTINE 21 MG (NICODERM) PATCH TD SCH (08:42)
[2016-11-30] MEDS: WARFARIN MONITORING XX SCH (08:43)
[2016-11-30 08:47] VITALS: BP 109/79
[2016-11-30] MEDS: HYDROCORTISONE 1% TOP SCH ×3 (09:00→16:16)
--- NOTE | 2016-11-30 09:00 | NUR ---
Patient to MRI via wheelchair.
--- NOTE | 2016-11-30 09:24 | Progress Note-A/P (E) ---
Progress Note Subjective: Patient is up to chair. He is sleeping but awakens easily. Discussed current findings and MRI. Patient has discussed skilled care with hemodialysis patient care specialist and with his neighbors, he understands that he lives at home alone and this can be concerning. He reports he is not sure what to do. Objective: Current Medications Acetaminophen 650 mg Q6H PRN PO Calcium Carbonate 300 mg Q8H PRN PO Al Hydrox/Mg Hydrox/Simethicone 30 ml Q6H PRN PO Ondansetron 4 mg Q6HR PRN PO Promethazine Q6H PRN IV Magnesium Hydroxide 30 ml DAILY PRN PO Polyethylene Glycol 17 gm DAILY PRN PO Docusate 100 mg BID PRN PO Nicotine 21 mg DAILY TD Digoxin 0.25 mg DAILY PO Warfarin 4 mg DAILY@1700 PO Pantoprazole 40 mg DAILY PO Simvastatin 40 mg HS PO Dextrose 15 gm Q15M PRN PO Dextrose PRN IV Glucagon 1 mg PRN IM Insulin Human Lispro QIDACHS SC Vital Signs Date Time Temp Pulse Resp B/P Pulse Ox O2 Delivery O2 Flow Rate FiO2 11/30/16 08:47 97.3 78 22 93 Room air 11/30/16 08:34 109/79 I & O Past 24 hrs 11/30/16 07:00 Intake Total 3374 ml Output Total 4415 ml Balance -1041 ml Intake Oral 2974 ml IV Total 400 ml Output Urine Total 4415 ml # Bowel Movements 1 Physical Exam General--Awake and alert. No distress. HEENT--Normocephalic. MMM in oral cavity. Lungs--End inspiratory wheeze noted at left lung base. Nonlabored respirations. Heart--RRR. II/ CASSANDRA heard over left sternal border. Abdomen--Normal bowel sounds. Soft. Nondistended. Nontender. Extremities--No edema. Charcot deformity of left foot. Past 24 hour Lab Results 11/30/16 05:10 Laboratory Results Past 24 Hrs 11/30/16 05:10: Albumin 3.4, Anion Gap 12.8, Basophils # (Auto) 0.0, Basophils (%) (Auto) 0, Blood Urea Nitrogen 20, Calcium Level 8.8, Carbon Dioxide Level 31, Chloride Level 103, Creatinine 1.38, Eosinophils # (Auto) 0.2, Eosinophils (%) (Auto) 3, Estimat Glomerular Filtration Rate 60.1, Estimated GFR (Non- 49.7, Glucose Level 121, Hematocrit 45.90, Hemoglobin 14.6, Lymphocytes # (Auto ) 1.5, Lymphocytes (%) (Auto) 20, Magnesium Level 2.2, Mean Corpuscular Hemoglobin 26.5, Mean Corpuscular Hemoglobin Concent 31.8, Mean Corpuscular Volume 84, Mean Platelet Volume 9.8, Monocytes # (Auto) 0.5, Monocytes (%) (Auto ) 7, Neutrophils # (Auto) 5.0, Neutrophils (%) (Auto) 70, Phosphorus Level 3.4, Platelet Count 130, Potassium Level 4.9, Prothromb Time International Ratio 2.0 , Prothrombin Time 21.8, Red Blood Count 5.50, Red Cell Distribution Width 16.2 , Sodium Level 141, White Blood Count 7.[address] Head IMPRESSION: No CT evidence of acute intracranial abnormality. 11.29.16 Carotid u/s IMPRESSION: Left greater than right mixed carotid plaques do not form hemodynamically significant degrees of stenosis. There is antegrade directional left vertebral flow; however, the right vertebral shows no identifiable intraluminal flow, either too slow to be detected or occluded. 11.30.16 MRI Brain IMPRESSION: 1. Small subacute infarct in the right occipital lobe. 2. Generalized parenchymal volume loss and chronic small vessel ischemic change is appropriate for age. 3. No high-grade narrowing, aneurysm or dissection involving the major intracranial arteries. Assessment/Plan Stroke, Left Hemianopsia CT head negative for acute changes. MRI pending. Carotid u/s report above. Already on anticoagulation and aspirin at home. Continue PT/OT/ST. Would benefit from ophthalmology referral pending workup. Disequilibrium Likely due to stroke. PT/OT eval and treat. Deconditioning PT/OT eval and treat. Patient would benefit from skilled, however he is resistant. Will have patient evaluated by PT and OT for home safety. Dehydration Mild. IVF. Daily weight, I&O. BLE edema JOEY hose. Atrial fibrillation Warfarin and digoxin per home dose. INR 2.0. Diabetes Mellitus Type II A1C 7.1 09/2016. Holding oral agents. Sliding scale. GERD Pantoprazole (sub for omeprazole), creatinine normal. Charcot joints PT. HLD Continue home simvastatin. Constipation Continue home bowel regimen. Tobacco abuse Nicotine patch. 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 FEN Diabetic diet. IVF. Peripheral IV. Electrolytes normal. DVT Prophylaxis Warfarin, with a therapeutic INR. Code Status Full Dispo Inpatient. MRI today. PT and OT to evaluate patient for home safety and look to d/c to home or to SNF tomorrow. SUSANNAH LIN MD Nov 30, 2016 09:24
[2016-11-30] MEDS: PANTOPRAZOLE 40 MG (PROTONIX) TAB PO SCH (10:29)
[2016-11-30] MEDS: DIGOXIN 0.25 MG (LANOXIN) TAB PO SCH (10:29)
[2016-11-30] MEDS: DOCUSATE SODIUM 100 MG (COLACE) CAP PO SCH (10:29)
--- NOTE | 2016-11-30 10:55 | Diagnostic Imaging Report ---
EXAM: MRI BRAIN W W/O MRA HEAD W/O INDICATION: Left hemianopsia. COMPARISON: CT head without contrast 11/28/2016. FINDINGS: MRI: There is a small area of restricted water diffusion, associated T2 hyperintensity and peripheral enhancement in the right occipital lobe compatible with subacute infarct. Scattered nonspecific supratentorial white matter T2 hyperintensities, presumed leukoaraiosis. Generalized cerebral and cerebellar parenchymal volume loss is appropriate for age. No other abnormal intracranial signal, enhancement, restricted water diffusion or hemosiderin deposition. Normal morphology including the major midline structures, cerebellar pontine angle and posterior fossa. Normal intracranial flow voids. No hydrocephalus or extra-axial fluid collections. The orbits and paranasal sinuses are unremarkable. MRA: No high-grade narrowing, aneurysm or dissection involving the intracranial internal carotids, anterior, middle or posterior cerebral arteries. No definite anterior communicating artery. Diminutive bilateral posterior communicating arteries. Codominant vertebral arteries. IMPRESSION: 1. Small subacute infarct in the right occipital lobe. 2. Generalized parenchymal volume loss and chronic small vessel ischemic change is appropriate for age. 3. No high-grade narrowing, aneurysm or dissection involving the major intracranial arteries. Dictated by: Dictated on workstation # [id number]
--- NOTE | 2016-11-30 11:32 | OT Daily Note Inpatient (E) ---
OT Daily Treatment Service Date/Time 11/30/16, 11:21 Primary Diagnosis: (1) Vertigo ICD Code: R42 (2) Altered mental status ICD Code: R41.82 (3) Vision loss ICD Code: H54.7 Treatment Diagnosis: (1) Weakness ICD Code: R53.1 (2) Vision loss ICD Code: H54.7 Onset Date: 11/28/16 Start of Care Date: Nov 29, 2016 Precaution/Isolation: Standard Precautions Fall Level: High Risk 51 or greater Resuscitation Status: Full Code Current Activity: Agrees to participate, In bed I can see better today, my vision in coming in and my hand does not have tremors anymore and i can eat cereal. Pain Level: 0 Oxygen Needed: Room air Current Function Assessment Mental Status Mental Status: Alert Cognition Attention: Impaired Memory: Impaired Safety/Judgement: Impaired Visual/Perceptual Skills Visual Precep Skills Training: Depth preception, L neglect, Limited FOV, Scanning cues Glassess: Yes (Lined bifocals) Hearing: Impaired (Pt hard of hearing) Hand Dominance Hand Dominance: Right Skin and Positioning Comment Pt stated he picked a pimple on right thigh/buttock and had some minor bleeding. Bed Mobility/Transfers Bed Mobility: SBA Supine from Sit: SBA Sit to Stand: SBA (v/c to push off) Chair Transfer: CGA Sitting Balance: WFL ADLs Hand : Feeding Types of Assist Tools: Opening lids/pkg Comment Pt required assistance to open milk carton but was able to open cereal container with extra time. Pt was able to eat all food on plate and did not miss anything on the left side, but when milk was moved to the left side of body he was unable to find it without v/c. Dressing Dressing Lower Body w Assist: Fasten pants Comment Min assist for L foot for threading brief due to incontinence. Toileting Toilet Hygiene: Maximum Assist (Pt states he uses a bottom liat at home and not able to reach without it.) Clothing Tariq-Pants Down : Clothing Management-Pants Down: SBA Clothing Tariq-Pants Up : Clothing Management-Pants Up: SBA Toilet Transfer Ability: Setup/SBA, CGA Education/Assessment Education Provided: Home management/safety (Pt education for FAST symptoms of stroke and when to call 911.) Teaching Method: Practice/repetition, Verbal Readiness to Learn: Good Barriers to Learning: Visual impairment Treatment Tolerance: Joseph trmnt w/o complaints Rehabilitation Potential: Good Pt coopertive but impulsive at times. Pt left for MRI after tx.. MD came in during tx and was alerted to L neglect and decreased tremors in R hand. POC Plan of Care Problems Identified: Activity Tolerance, ADLs, Balance, Body Awareness, Lt UE Strength, Rt UE Strength, Safety Awareness, Vision Impairment Plan: Evaluation-OT, ADL/Self Care Management, Therapy Exercises, Therapy Activities, Pt/Family/Staff Education Frequency of OT: Five times weekly Duration of OT: Other (5 days ) Therapy to Include: ADL training, Balance with ADLs, Neuro re-education, Pt/ family education, Therapeutic activities, UE coord. training, UE strengthing Discharge Recommendations: TCU/Skilled NH Recommended Equipment at DC: Rails on toilet Pt. Aware of Dx and Prognosis: Yes Pt. Aware of Risk & Benefit: Yes Goals: Discussed with patient Short Term Goals STG Time Frame: 3 Days Will Dress Upper Extremity: With Setup/SBA Will Dress Lower Extremity: With Setup/SBA (min a) Will do Toileting: With Setup/SBA (CGA/SBA) Will Perform Funct Transfer: With Setup/SBA (CGA/SBA) STG #1 Pt will participate in 15 min of ther ex with 4 or less rest breaks. STG #2 Pt will demonstrate ability to complete grooming task in standing at sink and locate all items by self with SBA. STG #3 Pt will demonstrate ability to complete wide head turns during self care activities with minimal prompting to increase safety during ADLs. Penitentiary Goals LTG Time Frame: 5 Days Will Dress Upper Extremity: Independently Will Dress Lower Extremity: Independently Will Bathe Self: With Setup/SBA LTG # 1 Pt will demonstrate ability to visually scan environment and locate 8/10 items provided by therapist with independence. CPT/G Codes Time In: 820 Time Out: 852 Total Minutes: 32 Codes/Minutes: [id number] ADL Agueda Myers Nov 30, 2016 11:32
[2016-11-30] MEDS ORDERED: [UNRECOGNIZED DRUG - CODE] TP (12:16)
[2016-11-30] MEDS ORDERED: MULT-954 PO (12:16)
[2016-11-30] MEDS ORDERED: HYDR28CR18 TP (12:16)
--- NOTE | 2016-11-30 13:33 | NUR ---
Visited with Pt. regarding skilled care. Pt. doesn't feel like he needs skilled care and he could go home. SW encouraged Pt. to discuss this further with Dr. Bonner. Pt. did state if he has to go to skilled care he would prefer to go to [facility]. VALORIE sent information to [facility] to review for acceptance.
[2016-11-30] MEDS: NYSTATIN POWDER 100,000 UNITS 15 GM BTL TOP SCH ×2 (13:42→18:33)
--- NOTE | 2016-11-30 14:12 | PT Daily Note Inpatient (E) ---
PT Daily Treatment Service Date/Time 11/30/16, 14:06 Medical Diagnosis: (1) Vertigo ICD Code: R42 (2) Altered mental status ICD Code: R41.82 (3) Vision loss ICD Code: H54.7 Physical Therapy: (1) Vertigo ICD Code: R42 (2) Altered mental status ICD Code: R41.82 Precaution/Isolation: Standard Precautions Resuscitation Status: Full Code Fall Level: High Risk 51 or greater Subjective pt pleasant and cheerful, states "both of my big toes are sore, very sore today ", agrees to therapy Pain Level: 3 Pain Location/Comment c/o right sided neck pain Oxygen Delivery: Room air Treatments Sit, Stand, Supine: Long Sitting (& sitting) Extremity: Both Lower Extremity Assistance: AROM Repetition: 1 x 10 Exercise: AP, Heel Slides, Hip Abduction, SLR, LAQ, Hip Flexion, External Rotation, Internal Rotation Transfers Sit-Stand from bed: Supervision or setup Stand-Sit: Supervision or setup Gait Ambulation: Supervision or setup Distance Walked: 180' pt c/o BLE big toes painful today with gait and at rest Weight Bearing Status: Full Assistive Device: FWW Gait Assist: Supervision Required Gait Description: Wide Based Gait, Decreased Farida, Slow, Flexed Trunk Education/Plan Assessment Tolerates exercises and gait well, decreased strength, fatigued easily Safety Awareness: Impaired Response to Treatment: Improving Plan Cont POC Patient will be seen: Daily Sunday-Sunday Discharge Recommendations: TCU/Skilled NH Coding Time In: 1340 Time Out: 1405 Total Minutes: 25 Codes/Units: 27787 Exercise Therp Victoria m ELISA [employer]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
[2016-11-30 14:40] VITALS: BP 109/79
--- NOTE | 2016-11-30 15:07 | NUR ---
MED REC COMPLETE--current med list obtained from external med history application, patient interview, and list from patient's PCP (Dr. Rivera). Completed by Douglas Gonzalez, Pharm. D. Candidate 2017.
[2016-11-30 15:44] VITALS: BP 119/68
--- NOTE | 2016-11-30 16:07 | PT Daily Note Inpatient (E) ---
PT Daily Treatment Service Date/Time 11/30/16, 16:00 Medical Diagnosis: (1) Vertigo ICD Code: R42 (2) Altered mental status ICD Code: R41.82 (3) Vision loss ICD Code: H54.7 Physical Therapy: (1) Vertigo ICD Code: R42 (2) Altered mental status ICD Code: R41.82 Precaution/Isolation: Standard Precautions Resuscitation Status: Full Code Fall Level: High Risk 51 or greater Subjective Patient has worked with [employer] this date. He is willing to participate in further therapy services for PT to reevaluate ambulation, and balance. Patient notes pain in his feet with ambulation over 100 feet. He denies having left sided visual deficits this date. PT was able to get the following information from patient this date: several steps to enter his home, he does have FWW and several canes but has not used them, and no grab bars in bathroom, he pulls himself up using door frame. Oxygen Delivery: Room air Transfers Sit-Stand from bed: Contact Guard Assist Stand-Sit: Minimal Assistance Gait Ambulation: Contact Guard Assist Distance Walked: Approximately 110 feet with FWW Patient unable to complete head turns vertically or horizontally without verbal cues and visual cues, he demonstrates moderate path deviation with head turns. Impaired balance noted with turning and increased time required to complete turns. Tinetti Balance assessment also completed with patient scoring a 8/16 on standing balance and 8/12 on gait portion total of 16/28 putting him in high fall risk category. Assistive Device: FWW Gait Assist: Min Assist/Contact Guard Education/Plan Education PT educated the patient that PT feels he would benefit from additional therapy services to work on balance, strength, and activity tolerance. He states he doesn't want to go to a senior living facility. Assessment Patient would benefit from additional therapy services secondary to his impaired gait, balance, and safety awareness. Plan Continue to see the patient working on gait, balance, and strengthening. Patient will be seen: Daily Sunday-Sunday Discharge Recommendations: TCU/Skilled NH Coding Time In: 1540 Time Out: 1600 Total Minutes: 20 Codes/Units: 54271 Exercise Therp 15 m RADHA HACKETT PT Nov 30, 2016 16:07
[2016-11-30] MEDS: warFARin 4 MG (COUMADIN) TAB PO SCH (16:21)
--- NOTE | 2016-11-30 18:50 | NUR ---
Patient remains oriented throughout day shift. Continues to have left sided peripheral vision loss. Denies pain or distress. 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 Pleasant and cooperative with cares. Uses call light appropriately for help. Call light in reach.
--- NOTE | 2016-11-30 20:00 | NUR ---
Patient resting in recliner chair with legs elevated. States is feeling much better. Wanting to gp home, yet is aware that he needs to be in the skilled nursing for a few weeks to get stronger. Denies any double vision, or blurred vision. States that he can also see better on his left side/peripheral. No needs at this time. Denies pain.
[2016-11-30] MEDS: SIMvastatin 40 MG (ZOCOR) TAB PO SCH (21:04)
[2016-12-01] VITALS: BP 124/72
[2016-12-01 00:34] VITALS: BP 87/58
--- NOTE | 2016-12-01 03:00 | NUR ---
Rests at long intervals tonight. Respirations even and non-labored.
--- NOTE | 2016-12-01 06:30 | NUR ---
Rested well tonight. No discomforts voiced. Denies lightheadedness or dizziness. No needs at this time.
[2016-12-01] MEDS: INSULIN LISPRO 1 UNIT/0.01 ML (HUMALOG) DOSE SC SCH ×2 (06:52→11:30)
[2016-12-01 08:17] VITALS: BP 112/66
[2016-12-01] MEDS: PANTOPRAZOLE 40 MG (PROTONIX) TAB PO SCH (08:32)
[2016-12-01] MEDS: DIGOXIN 0.25 MG (LANOXIN) TAB PO SCH (08:32)
[2016-12-01] MEDS: HYDROCORTISONE 1% TOP SCH ×2 (08:33→12:03)
[2016-12-01] MEDS: NYSTATIN POWDER 100,000 UNITS 15 GM BTL TOP SCH ×2 (08:33→12:03)
[2016-12-01] MEDS: NICOTINE 21 MG (NICODERM) PATCH TD SCH (08:33)
[2016-12-01] MEDS: DOCUSATE SODIUM 100 MG (COLACE) CAP PO SCH (08:33)
[2016-12-01] MEDS: WARFARIN MONITORING XX SCH (08:34)
[2016-12-01 08:36] VITALS: BP 112/66
[2016-12-01] MEDS ORDERED: NICOTINE PATCH REMOVAL TOP SCH (08:59)
[2016-12-01] MEDS ORDERED: FUROSEMIDE 20 MG (LASIX) TAB PO SCH (09:00)
[2016-12-01] MEDS ORDERED: GLIMEPIRIDE 4 MG (AMARYL) TAB PO SCH (09:00)
--- NOTE | 2016-12-01 09:53 | PT Daily Note Inpatient (E) ---
PT Daily Treatment Service Date/Time 12/01/16, 09:46 Medical Diagnosis: (1) Vertigo ICD Code: R42 (2) Altered mental status ICD Code: R41.82 (3) Vision loss ICD Code: H54.7 Physical Therapy: (1) Vertigo ICD Code: R42 (2) Altered mental status ICD Code: R41.82 Precaution/Isolation: Standard Precautions Resuscitation Status: Full Code Fall Level: High Risk 51 or greater Subjective pt pleasant and cooperative, agrees to PT Oxygen Delivery: Room air Treatments Sit, Stand, Supine: Long Sitting (& sitting) Extremity: Both Lower Extremity Assistance: AROM Repetition: 1 x 15 Exercise: AP, Heel Slides, Hip Abduction, SLR, LAQ, Hip Flexion, External Rotation, Internal Rotation Transfers Sit-Stand from bed: Supervision or setup (cues to put hands on arm rests to push off) Stand-Sit: Supervision or setup (cues to reach back for arm rests when sitting) Gait Ambulation: Supervision or setup Distance Walked: 200' x1 standing rest break due to fatigue and bilateral feet pain Weight Bearing Status: Full Assistive Device: FWW Gait Assist: Supervision Required Gait Description: Wide Based Gait, Decreased Farida, Slow, Flexed Trunk Education/Plan Assessment Pt endurance improving, would benefit from further skilled therapy before going home Safety Awareness: Impaired (cont to need cues for safe transfers) Response to Treatment: Improving Plan Cont POC Patient will be seen: Daily Sunday-Sunday Discharge Recommendations: TCU/Skilled NH Coding Time In: 913 Time Out: 943 Total Minutes: 30 Codes/Units: 58432 Exercise Therp ELISA Dewitt PTA Dec 01, 2016 09:53
--- NOTE | 2016-12-01 10:13 | NUR ---
Visited with Pt. again about going to skilled care. Pt. reports he feels like he could go home but understands its the recommendation for him to go to skilled care. SW informed him he has been accepted at [facility]. Pt. is willing to go to [facility]. Explained he will be discharged today and SW will arrange transportation for him.
--- NOTE | 2016-12-01 11:14 | Progress Note-A/P (E) ---
Progress Note Subjective: Patient is up to chair. Friends at bedside. Discussion regarding discharge plans and carotid findings. Patient thinks he may have been to a vascular surgeon before, but does not remember what their name was and he was not happy with that experience. Will allow PCP to arrange vascular consult. Questions answered. Objective: Current Medications Acetaminophen 650 mg Q6H PRN PO Calcium Carbonate 300 mg Q8H PRN PO Al Hydrox/Mg Hydrox/Simethicone 30 ml Q6H PRN PO Ondansetron 4 mg Q6HR PRN PO Promethazine Q6H PRN IV Magnesium Hydroxide 30 ml DAILY PRN PO Polyethylene Glycol 17 gm DAILY PRN PO Docusate 100 mg BID PRN PO Nicotine 21 mg DAILY TD Digoxin 0.25 mg DAILY PO Warfarin 4 mg DAILY@1700 PO Pantoprazole 40 mg DAILY PO Simvastatin 40 mg HS PO Dextrose 15 gm Q15M PRN PO Dextrose PRN IV Glucagon 1 mg PRN IM Insulin Human Lispro QIDACHS SC Vital Signs Date Time Temp Pulse Resp B/P Pulse Ox O2 Delivery O2 Flow Rate FiO2 12/01/16 08:36 98.0 81 20 92 Room air 12/01/16 08:17 112/66 I & O Past 24 hrs 12/01/16 07:00 Intake Total 2536 ml Output Total 5040 ml Balance -2504 ml Intake Oral 2536 ml Output Urine Total 5040 ml Physical Exam General--Awake and alert. No distress. HEENT--Normocephalic. MMM in oral cavity. Lungs--Clear bilaterally. Nonlabored respirations. Heart--RRR. II/ CASSANDRA heard over left sternal border. Abdomen--Normal bowel sounds. Soft. Nondistended. Nontender. Extremities--No edema. Charcot deformity of left foot. Past 24 hour Lab Results Microbiology 11/29/16 Urine Culture - Preliminary, Resulted Imaging Results 11.28.16 CT Head IMPRESSION: No CT evidence of acute intracranial abnormality. 11.29.16 Carotid u/s IMPRESSION: Left greater than right mixed carotid plaques do not form hemodynamically significant degrees of stenosis. There is antegrade directional left vertebral flow; however, the right vertebral shows no identifiable intraluminal flow, either too slow to be detected or occluded. 11.30.16 MRI Brain IMPRESSION: 1. Small subacute infarct in the right occipital lobe. 2. Generalized parenchymal volume loss and chronic small vessel ischemic change is appropriate for age. 3. No high-grade narrowing, aneurysm or dissection involving the major intracranial arteries. Assessment/Plan Stroke, Left Hemianopsia Vision is improving. CT head negative for acute changes. MRI reports subacute occipital infarct. Carotid u/s report shows questionable occlusion. Will need vascular follow up to evaluate. Already on anticoagulation and aspirin at home. Continue PT/OT/ST. Ophthalmology eval being scheduled. Disequilibrium Likely due to stroke. PT/OT with skilled. Deconditioning PT/OT. Patient discharging to skilled. Dehydration Mild. IVF. Daily weight, I&O. BLE edema JOEY hose. Atrial fibrillation Warfarin and digoxin per home dose. INR 2.0. Diabetes Mellitus Type II A1C 7.1 09/2016. Holding oral agents. Sliding scale. GERD Pantoprazole (sub for omeprazole), creatinine normal. Charcot joints PT. HLD Continued home simvastatin. Constipation Continued home bowel regimen. Tobacco abuse Nicotine patch. Counseled cessation. FEN Diabetic diet. IVF. Peripheral IV. Electrolytes normal. DVT Prophylaxis Warfarin, with a therapeutic INR. Code Status Full Dispo Inpatient. MRI per above. Discharging to skilled today. SUSANNAH LIN MD Dec 01, 2016 11:14
[2016-12-01] MEDS ORDERED: ATOR10TA PO (11:18)
--- NOTE | 2016-12-01 11:30 | Discharge Summary (E) ---
Discharge Summary (A) Admit Date/Time Nov 29, 2016 at 14:29 Discharge Date/Time Dec 01, 2016 Admitting Provider Karan Chinchilla MD Primary Care Provider Олег Rivera MD Attending Provider Karan Chinchilla MD Consulting Provider Admission Diagnosis Stroke, Left Hemianopsia Disequilibrium Deconditioning History and Present Illness Sachin Vasquez is a 81 year old male admitted form ED 11/28 where he presented with report of sudden change in vision after he got back into his truck. He could not see were things were. In ED, he complained of light-headedness and vertigo. Afebrile with HR 86, RR 22, BP 114/78. SpO2 92% RA. CBC fairly unremarkable. INR 2.1. Chemistry suggestive of mild dehydration. Digoxin 1.20. Urine wasn't checked. CT head was negative for acute changes. He was given no therapies in ED. He was then admitted for observation. On arrival to unit, awake, alert, interactive, mildly disoriented and he as a bit of trouble relating history clearly. Says he is here because of "feeling like I am walking on an air mattress." Has trouble with balance and with foot positioning at times. Says in ER today he had double vision. He has trouble recalling whether this was lateral or vertical. Since arrival to hospital, this has improved for the most part. Neuro exam is as noted below. Speech is not slurred but he has a very mild bit of word-finding trouble. Symptom onset was today when leaving the post office this [place]. 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 One of the employees there took him home. He then called a friend who brought him to hospital. No nausea or vomiting. No vertigo but acknowledges he has trouble keeping his balance over the las several weeks. Has some right neck pain he attributes to pulled muscle. No fever or chills. Denies new respiratory complaints. Denies chest pain or palpitations. Hospital Course and Treatment Stroke, Left Hemianopsia Vision is improving. CT head negative for acute changes. MRI reports subacute occipital infarct. Carotid u/s report shows questionable occlusion. Will need vascular follow up to evaluate. Already on anticoagulation and aspirin at home. Continue PT/OT/ST. Ophthalmology eval being scheduled. Disequilibrium Likely due to stroke. PT/OT with skilled. Deconditioning PT/OT. Patient discharging to skilled. Dehydration Mild. IVF. Daily weight, I&O. BLE edema JOEY hose. Atrial fibrillation Warfarin and digoxin per home dose. INR 2.0. Diabetes Mellitus Type II A1C 7.1 09/2016. Holding oral agents. Sliding scale. GERD Pantoprazole (sub for omeprazole), creatinine normal. Charcot joints PT. HLD Continued home simvastatin. Constipation Continued home bowel regimen. Tobacco abuse Nicotine patch. Counseled cessation. FEN Diabetic diet. IVF. Peripheral IV. Electrolytes normal. DVT Prophylaxis Warfarin, with a therapeutic INR. Code Status Full Dispo Inpatient. MRI per above. Discharging to skilled today. Discharge Physicial Exam Physical Exam General--Awake and alert. No distress. HEENT--Normocephalic. MMM in oral cavity. Lungs--Clear bilaterally. Nonlabored respirations. Heart--RRR. II/ CASSANDRA heard over left sternal border. Abdomen--Normal bowel sounds. Soft. Nondistended. Nontender. Extremities--No edema. Charcot deformity of left foot. Radiology/Laboratory Data .02.09 CT Head IMPRESSION: No CT evidence of acute intracranial abnormality. .03.12 Carotid u/s IMPRESSION: Left greater than right mixed carotid plaques do not form hemodynamically significant degrees of stenosis. There is antegrade directional left vertebral flow; however, the right vertebral shows no identifiable intraluminal flow, either too slow to be detected or occluded. 11.30.16 MRI Brain IMPRESSION: 1. Small subacute infarct in the right occipital lobe. 2. Generalized parenchymal volume loss and chronic small vessel ischemic change is appropriate for age. 3. No high-grade narrowing, aneurysm or dissection involving the major intracranial arteries. Laboratory Results Past 10Days 11/28/16 15:10: Alanine Aminotransferase (ALT/SGPT) 28L, Albumin 4.3, Albumin/Globulin Ratio 1.048L, Alkaline Phosphatase 113, Anion Gap 17.8H, Aspartate Amino Transf (AST/ SGOT) 40H, BUN/Creatinine Ratio 18, Basophils # (Auto) 0.0, Basophils (%) (Auto ) 1, Blood Urea Nitrogen 23H, C-Reactive Protein 1.40H, Calcium Level 9.3, Calcium/Ionized Calcium Ratio 3.7L, Calculated Osmolality 282, Carbon Dioxide Level 27, Chloride Level 103, Creatinine 1.27, Eosinophils # (Auto) 0.2, Eosinophils (%) (Auto) 2, Estimat Glomerular Filtration Rate 66.2, Estimated GFR (Non- 54.7, Glucose Level 105, Hematocrit 51.50H, Hemoglobin 16.9, Lymphocytes # (Auto) 1.4, Lymphocytes (%) (Auto) 16L, Magnesium Level 2.2, Mean Corpuscular Hemoglobin 26.8, Mean Corpuscular Hemoglobin Concent 32.8, Mean Corpuscular Volume 82, Mean Platelet Volume 9.3, Monocytes # (Auto) 0.6, Monocytes (%) (Auto) 7, Neutrophils # (Auto) 6.2, Neutrophils (%) (Auto) 74H, Platelet Count 155, Potassium Level 4.7, Red Blood Count 6.30H, Red Cell Distribution Width 17.4H, Sodium Level 144, Thyroid Stimulating Hormone (TSH) 2.52, Total Bilirubin 0.8, Total Protein 8.4, Troponin I 0.035, White Blood Count 8.41 11/28/16 18:37: Digoxin Level 1.20, Prothromb Time International Ratio 2.1H, Prothrombin Time 23.4H 11/29/16 02:40: Urine Bacteria 1+, Urine Bilirubin Negative, Urine Clarity Slightly cloudy, Urine Collection Type Random voided, Urine Color Yellow, Urine Glucose (UA) Negative, Urine Ketones Negative, Urine Leukocyte Esterase 1+H, Urine Nitrite PositiveH, Urine Protein Negative, Urine RBC None seen, Urine RBC (Auto) Trace- intactH, Urine Specific Gibson 1.025, Urine Squamous Epithelial Cells None, Urine Urobilinogen 0.2, Urine WBC 20-30, Urine pH 5.5, Volume Urine Centrifuged 12 ml 11/29/16 05:20: Albumin 3.3#L, Anion Gap 12.3, Basophils # (Auto) 0.0, Basophils (%) (Auto) 1, Blood Urea Nitrogen 21H, Calcium Level 8.5L, Carbon Dioxide Level 28, Chloride Level 105, Creatinine 1.13, Eosinophils # (Auto) 0.2, Eosinophils (%) (Auto) 3, Estimat Glomerular Filtration Rate 75.7, Estimated GFR (Non- 62.6, Glucose Level 137#H, Hematocrit 45.80, Hemoglobin 14.9, Lymphocytes # ( Auto) 1.1, Lymphocytes (%) (Auto) 16L, Mean Corpuscular Hemoglobin 27.0, Mean Corpuscular Hemoglobin Concent 32.5, Mean Corpuscular Volume 83, Mean Platelet Volume 9.5, Monocytes # (Auto) 0.5, Monocytes (%) (Auto) 7, Neutrophils # (Auto ) 5.2, Neutrophils (%) (Auto) 74H, Platelet Count 134L, Potassium Level 4.2, Red Blood Count 5.52H, Red Cell Distribution Width 16.5H, Sodium Level 141, White Blood Count 6.98, Phosphorus Level 3.5 11/30/16 05:10: Albumin 3.4, Anion Gap 12.8, Basophils # (Auto) 0.0, Basophils (%) (Auto) 0, Blood Urea Nitrogen 20H, Calcium Level 8.8, Carbon Dioxide Level 31H, Chloride Level 103, Creatinine 1.38, Eosinophils # (Auto) 0.2, Eosinophils (%) (Auto) 3, Estimat Glomerular Filtration Rate 60.1, Estimated GFR (Non- 49.7, Glucose Level 121H, Hematocrit 45.90, Hemoglobin 14.6, Lymphocytes # (Auto ) 1.5, Lymphocytes (%) (Auto) 20, Magnesium Level 2.2, Mean Corpuscular Hemoglobin 26.5, Mean Corpuscular Hemoglobin Concent 31.8, Mean Corpuscular Volume 84, Mean Platelet Volume 9.8H, Monocytes # (Auto) 0.5, Monocytes (%) ( Auto) 7, Neutrophils # (Auto) 5.0, Neutrophils (%) (Auto) 70H, Phosphorus Level 3.4, Platelet Count 130L, Potassium Level 4.9, Prothromb Time International Ratio 2.0H, Prothrombin Time 21.8H, Red Blood Count 5.50, Red Cell Distribution Width 16.2H, Sodium Level 141, White Blood Count 7.20 Discharge Provider's Instructions You were admitted due to vision changes. You were found to have a stroke. You are being discharged to half-way facility for rehabilitation. Your home dose of cholesterol medication has been changed to a stronger medication. Otherwise your medications have not changed. You have been scheduled with Dr. Dunham (ophthalmology) for December 05, 2pm. If you can not make this, please call and reschedule. You will need to discuss which vascular surgeon you want to follow up with. Discharge Diet: Carbohydrate controlled Discharge Medications New Medications: Atorvastatin (Lipitor) 10 Mg Tablet 20 MG PO HS #30 Ref 0 TAB Continued Medications: Aspirin (Aspir 81) 81 Mg Tablet.dr 81 MG PO DAILY Clotrimazole (Athlete's Foot) 28 Gm Cream..g. 1 APPLIC TP BID PRN RASH Digoxin (Lanoxin) 0.25 Mg Tab 0.25 MG PO DAILY Docusate Sodium (Colace) 100 Mg Capsule 100 MG PO DAILY CAP Furosemide (Furosemide) 20 Mg Tablet 20 MG PO DAILY TAB Glimepiride (Amaryl) 4 Mg Tab 4 MG PO BID TAB Hydrocortisone (Cortizone-10) 28 Gm Cream..g. 1 APPLIC TP DAILY PRN ITCHING AND RASH Metoprolol Succinate (Metoprolol Succinate) 25 Mg Tab.er.24h 25 MG PO DAILY Multivitamin (Multi Vitamin Daily) 1 Each Tablet 1 TAB PO DAILY TAB Omeprazole (Omeprazole) 20 Mg Capsule.dr 40 MG PO DAILY@0700 Warfarin (Warfarin) 4 Mg Tablet 4 MG PO DAILY@1700 TAB Discontinued Medications: Lovastatin (Lovastatin) 20 Mg Tablet 80 MG PO HS Follow up Follow up Referrals: Ophthalmology - 12/05/16 @ [facility] with [facility] 2:00pm Discharge Diagnosis Stroke, Left Hemianopsia Disequilibrium Deconditioning Dehydration BLE edema Atrial fibrillation Diabetes Mellitus Type II Copies to: Additional Provider: BHARATH DUNHAM MD End of Report . SUSANNAH LIN MD Dec 01, 2016 11:30
--- NOTE | 2016-12-01 12:52 | NUR ---
Discharge order received. IV discontinued with catheter intact. No redness or swelling noted at insertion site. Report called to nurse Guillermina at [facility] 807. Dismissed via wheelchair to [facility] transportation van. No further needs.
[2016-12-01] MEDS ORDERED: ATORVASTATIN 10 MG (LIPITOR) TABLET PO SCH (21:00)
[2016-12-01] MEDS ORDERED: LOVASTATIN 80 MG PO SCH (21:00)
--- NOTE | 2016-12-25 13:36 | OT Therapy Evaluation (E) ---
Discharge Summary Service Date/Time 12/25/16, 13:32 Primary Diagnosis: (1) Vertigo ICD Code: R42 (2) Altered mental status ICD Code: R41.82 (3) Vision loss ICD Code: H54.7 Treatment Diagnosis: (1) Weakness ICD Code: R53.1 (2) Vision loss ICD Code: H54.7 Onset Date: 11/28/16 Start of Care Date: Nov 29, 2016 Summary of Discharge Therapy Comments Pt was seen for two occupational therapy sessions following initial evaluation. Pt demonstrated some progress towards goals. Use of therapeutic activities to improve pt's ability to locate and safely identify external stimuli during functional mobility. Unable to reassess all goals secondary to early discharge. Pt transferred to another facility for skilled services. Short Term Goals/Status Will Dress Upper Extremity: With Setup/SBA (NOT MET.) Will Dress Lower Extremity: With Setup/SBA (PROGRESS. Minimal assistance ) Will do Toileting: With Setup/SBA (PROGRESS. CGA/SBA) Will Perform Functional Transf: With Setup/SBA (PROGRESS. CGA/SBA) STG #1 Pt will participate in 15 min of ther-ex with 4 or less rest breaks. NOT MET. STG #2 Pt will complete grooming task in standing at sink and locate items all by self with SBA. NOT MET. STG #3 Pt will demonstrate ability to complete wide head turns during ADL's with minimal prompting to increase safety during self care tasks. PROGRESS. Demonstrated some progress, required verbal prompting to look completely on left side. Pillow Agent Goals/ Status Will Dress Upper Extremity: Independently (NOT MET.) Will Dress Lower Extremity: Independently (NOT MET.) Will Bathe Self: With Setup/SBA (NOT MET.) LTG # 1 Pt will demonstrate ability to visually scan environment and locate 8/10 items provided by therapist with independence.NOT MET. Discharge Recommendations: Alf (TCU/NH) YOUSUF UMAÑA OT Dec 25, 2016 13:36
[2017-01-20] MEDS ORDERED: LOVA20TA2 PO (04:41)
--- NOTE | 2017-01-30 15:38 | Physical Therapy Evaluation(E) ---
Discharge Summary Service Date/Time 01/30/17, 15:32 Primary Diagnosis: (1) Vertigo ICD Code: R42 (2) Altered mental status ICD Code: R41.82 (3) Vision loss ICD Code: H54.7 Treatment Diagnosis: (1) Vertigo ICD Code: R42 (2) Altered mental status ICD Code: R41.82 Onset Date: 11/28/2016 Start of Service Date: Nov 29, 2016 Summary of Progress Summary Comment The patient was treated for 4 visits during his stay in the hospital. The patient demonstrates improved activity tolerance and ambulation distance when using FWW, however balance continues to be problematic. Patient was discharged to a retirement facility to continue rehabilitation. Distance Walked in Feet 200 feet with FWW supervision. Assistive Device: FWW Assist: Supervision Required Gait Description: Wide Based Gait, Decreased [place], Slow, Flexed Trunk Transfer STG and Status Rolling: Modified [place] Sit-Supine: Modified [place] Sitting Edge of Bed: Modified [place] Supine-Sit: Modified [place] Sit-Stand from bed: Supervision or setup Goal Status at Discharge: Goal Met Stand-Sit: Supervision or setup Goal Status at Discharge: Goal Met Ambulation: Contact Guard Assist Goal Status at Discharge: Goal Met Distance Walked: 200 feet with FWW Transfer LTG and Status Rolling: Modified [place] Goal Status at Discharge: Goal Not Met Sit-Supine: Modified [place] Goal Status at Discharge: Goal Not Met Sitting Edge of Bed: Modified [place] Goal Status at Discharge: Goal Not Met Supine-Sit: Modified [place] Goal Status at Discharge: Goal Not Met Sit-Stand from bed: Modified [place] Goal Status at Discharge: Goal Not Met Stand-Sit: Modified [place] Goal Status at Discharge: Goal Not Met Plan of Care Goals and Status STG: Plan-Treatment Functional: Trans. Safe w/ AD Goal Status at Discharge: Goal Met Discharge Recommendations: TCU/Skilled [facility] Service Recommendations: Continue Service (Patient would benefit from additional therapy services to continue to improve strength, ambulation, and balance. ) Rationale for Recommendations Patient is discharged from PT services at this time secondary to being discharged to a retirement facility. RADHA HACKETT PT Jan 30, 2017 15:38
== END 2016-12-01 12:55 | DRG 66 ==
LOC: ED 15:05 → UNDOADMOB 19:49 → MED/SURG 19:49 → OBSVTOIN 11-29 14:29 → INTOOBSV 11-29 14:29 → UNDODISIN 12-01 12:55
PROVIDERS: ADMIT Internal Medicine; ATTEND Internal Medicine
DX: I63.9 Cerebral infarction, unspecified (principal); H53.452 Other localized visual field defect, left eye; E86.0 Dehydration; I48.91 Unspecified atrial fibrillation; E11.610 Type 2 diabetes mellitus with diabetic neuropathic arthropathy; I65.23 Occlusion and stenosis of bilateral carotid arteries; I10 Essential (primary) hypertension; E66.9 Obesity, unspecified; Z68.37 Body mass index [BMI] 37.0-37.9, adult; K59.00 Constipation, unspecified; Z79.01 Long term (current) use of anticoagulants; Z79.4 Long term (current) use of insulin; Z86.718 Personal history of other venous thrombosis and embolism
CPT/HCPCS: 36415; 70450; 70544; 70553; 80053; 80069; 80162; 81003; 81015; 83735; 84443; 84484; 85025; 85610; 86140; 87088; 87147; 87186; 93005; 93010; 93880; 99284; 99285

== ENCOUNTER 2017-01-20 03:16 | Emergency (ER) | payer MEDICARE, OTHER ==
[~2017-01-20] VITALS: Ht 180.3 cm; Wt 119.1 kg
[2017-01-20] MEDS ORDERED: LORazepam 2 MG/ML (ATIVAN) 1 ML VIAL ONE (03:25)
[2017-01-20] MEDS ORDERED: SODIUM CHLORIDE 250 ML IV PRN (03:30)
[2017-01-20] MEDS ORDERED: SODIUM CHLORIDE FLUSH 10 ML SYR IV PRN (03:30)
[2017-01-20] MEDS ORDERED: SODIUM CHLORIDE FLUSH 3 ML SYR IV PRN (03:30)
[2017-01-20] MEDS ORDERED: LORazepam 2 MG/ML (ATIVAN) 1 ML VIAL IV ONE ×2 (03:35→03:40)
--- NOTE | 2017-01-20 04:00 | NUR ---
Assisted patient obtaining a UA. Patient's leg has stopped shaking. Patient denies any pain.
[2017-01-20 04:20] LABS: BASOPHILS % (AUTO) 1 % (0-2); EOSINOPHILS # (AUTO) 0.2 10^3uL; EOSINOPHILS % (AUTO) 2 % (0-4); LYMPHOCYTES # (AUTO) 2.3 X10^3; MEAN CORPUSCULAR HEMOGLOBIN 27.5 PG (26.0-34.0); MEAN CORPUSCULAR HGB CONC 33.6 g/dL (31.0-37.0); MEAN CORPUSCULAR VOLUME 82 FL (80-100); MEAN PLATELET VOLUME 9.2 FL (6.0-9.5); MONOCYTES # (AUTO) 0.7 X10^3; MONOCYTES % (AUTO) 6 % (3-11); NEUTROPHILS # (AUTO) 7.8 X10^3; NEUTROPHILS % (AUTO) 71 % (51-67); PLATELET COUNT 187 10^3uL (150-450); WHITE BLOOD COUNT 10.95 10^3uL (4.0-11.0)
[2017-01-20 04:22] LABS: BILIRUBIN,URINE Negative (Negative); CLARITY,URINE Clear; COLOR,URINE Yellow; GLUCOSE, URINE (UA) Negative (Negative); LEUKOCYTE ESTERASE ,URINE 1+ (Negative); UROBILINOGEN,URINE 0.2 mg/dL (0.2-1.0)
[2017-01-20 04:25] LABS: ALBUMIN 4.3 g/dL (3.4-5.0); ANION GAP 22.6 MEQ/L (3-15); CALCULATED IONIZED CALCIUM 3.8 mg/dL (3.8-4.6); TOTAL PROTEIN 8.4 g/dL (6.4-8.5)
--- NOTE | 2017-01-20 04:25 | NUR ---
When Dr. Hodges performed initial neurologic assessment on arrival, patient had weakness to left arm and was unable to assess left leg d/t deformity of ankle. 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
--- NOTE | 2017-01-20 04:33 | NUR ---
Placed oxymask on patient d/t sats dropping to 88% while sleeping. Patient reported to us that he is suppose to be using a CPAP at home but stated, "I don't use it because I can breath better with out it than i can with it."
[2017-01-20] MEDS ORDERED: LEVETIRACETAM IV 1,000 MG in SODIUM CHLORIDE 100 ML IV ONE (05:00)
[2017-01-20 05:39] VITALS: BP 92/70
[2017-01-20 06:02] LABS: URINE CENTRIFUGED VOLUME 12 mL
== END 2017-01-20 06:15 | disposition short-term general hospital (02) ==
LOC: ED 03:18
DX: R25.3 Fasciculation (principal); I95.9 Hypotension, unspecified; I48.91 Unspecified atrial fibrillation; N39.0 Urinary tract infection, site not specified; Z87.891 Personal history of nicotine dependence
CPT/HCPCS: 36415; 70450; 71010; 80053; 81003; 81015; 82550; 82553; 84146; 84484; 85025; 85610; 85730; 87088; 93005; 96365; 96375; 99285; J1953; J2060; J7050; 93010; 99291

== ENCOUNTER → 2017-01-20 | Outpatient (CLI) | payer MEDICARE, OTHER | LOC: EMS 06:15 | PROVIDERS: ATTEND Family Medicine | DX: R53.1 Weakness (principal); I48.91 Unspecified atrial fibrillation; I10 Essential (primary) hypertension ==